=== PATIENT | male | born 1960 | race Caucasian/White ===

== ENCOUNTER 2021-10-27 07:22 | Day surgery (SDC) | payer BC | END 2021-10-27 11:56 | disposition home or self-care (01) | LOC: CSHSDC/OP 07:22 | PROVIDERS: ATTEND Family Medicine | DX: Z23 Encounter for immunization (principal); U07.1 COVID-19; I10 Essential (primary) hypertension | CPT/HCPCS: 96365; J3490; M0243; Q0244 ==